=== PATIENT | male | born 1955 | race Caucasian/White ===

== ENCOUNTER → 2016-05-23 | Outpatient (CLI) | payer OTHER ==
--- NOTE | 2016-05-23 16:56 | MRI ---
EXAM DESCRIPTION: MRI left knee CLINICAL HISTORY: Chronic knee pain and popping COMPARISON: None Available. TECHNIQUE: MRI of the left knee is performed according to our usual protocol with multiplanar multi sequence imaging. FINDINGS: Moderate left knee joint effusion is present and the patient has synovial hypertrophy. Evaluation of the articular surfaces of the knee joint shows severe medial compartment arthritis with extensive grade 4 chondrosis. Very little remaining articular cartilage is present in the medial compartment. Subchondral eburnation and reactive edema is present. Marginal osteophytes are noted. Lesser but still very significant patellofemoral arthritis is present with extensive grade 3 chondrosis. Mixed mainly grade 2/3 changes are present in the lateral compartment. Cruciate and collateral ligaments are intact. There is an extensive degenerative tear of the medial meniscus which is macerated throughout. There is no displaced fragment. There is a small loose body within the posteromedial aspect of the joint related to the arthritic changes. IMPRESSION: 1. Severe arthritis with related effusion, synovitis, and loose body 2. Extensive degenerative tear of the medial meniscus Electronically signed by: Ashish Carrion MD 05/23/2016 4:55 PM CDT
--- NOTE | 2016-05-23 16:59 | MRI ---
EXAM DESCRIPTION: MRI right knee CLINICAL HISTORY: Chronic right knee pain and popping COMPARISON: None Available. TECHNIQUE: MRI of the right knee is performed according to our usual protocol with multiplanar multi sequence imaging. FINDINGS: There is a moderate right knee joint effusion. There is a multilocular extra-articular ganglion behind the medial aspect of the distal femoral metaphysis. This has a benign appearance but is fairly large overall measuring about 3.3 cm in craniocaudal dimension and a maximum of about 19 mm in AP diameter. Assessment of the articular surfaces of the knee joint shows severe medial compartment arthritis with extensive mixed grade 3/4 chondrosis. The changes are slightly less severe than the contralateral knee but are still very severe. There is also a lesser degree of patellofemoral chondrosis. A prominent vertical cartilage tear is present just lateral to the main articular ridge of the patella and is near full-thickness and there is diffuse grade 2 chondrosis in the patellofemoral compartment. Lateral compartment is relatively well preserved. Cruciate and collateral ligaments are intact. There is a complex tear of the mid body and posterior horn of the medial meniscus with oblique horizontal and horizontal tear components. The tear extends all the way to the posterior central attachment site and there is an intrameniscal cyst at the posteromedial corner. Lateral meniscus intact. IMPRESSION: 1. Complex medial meniscus tear 2. Severe medial compartment arthritis 3. Large extra-articular ganglion Electronically signed by: Ashish Carrion MD 05/23/2016 4:58 PM CDT
== END | disposition home or self-care (01) ==
LOC: MRI 06:45
PROVIDERS: ATTEND Family Medicine
DX: M25.461 Effusion, right knee (principal); S83.241A Other tear of medial meniscus, current injury, right knee, initial encounter

== ENCOUNTER → 2016-08-15 | Outpatient (CLI) | payer OTHER | END | disposition home or self-care (01) | LOC: LAB.O 12:28 | PROVIDERS: ATTEND Psychiatry & Neurology Neurology | DX: M45.3 Ankylosing spondylitis of cervicothoracic region (principal); M45.6 Ankylosing spondylitis lumbar region; M79.A9 Nontraumatic compartment syndrome of other sites; M35.1 Other overlap syndromes; M54.81 Occipital neuralgia; M33.90 Dermatopolymyositis, unspecified, organ involvement unspecified; M35.3 Polymyalgia rheumatica; M06.9 Rheumatoid arthritis, unspecified; M35.00 Sjogren syndrome, unspecified; M32.10 Systemic lupus erythematosus, organ or system involvement unspecified; M81.8 Other osteoporosis without current pathological fracture; F90.9 Attention-deficit hyperactivity disorder, unspecified type; G04.89 Other myelitis; G25.89 Other specified extrapyramidal and movement disorders; G61.81 Chronic inflammatory demyelinating polyneuritis; H46.9 Unspecified optic neuritis; I73.00 Raynaud's syndrome without gangrene; G50.0 Trigeminal neuralgia; I77.9 Disorder of arteries and arterioles, unspecified; H81.49 Vertigo of central origin, unspecified ear; E53.8 Deficiency of other specified B group vitamins; E55.9 Vitamin D deficiency, unspecified ==

== ENCOUNTER → 2016-11-21 | Outpatient (CLI) | payer OTHER ==
--- NOTE | 2016-11-22 03:19 | MRI ---
EXAM DATE: 11/21/2016 2:00 PM CDT. PROCEDURE: MR CERVICAL SPINE WITHOUT IV CONTRAST. INDICATION: IDIOPATHIC PROGRESSIVE NEUROPATHY. COMPARISON: None. TECHNIQUE: Multiplanar T1 and T2 MRI images of the cervical were acquired without administration of intravenous contrast. FINDINGS: Straightening of the normal cervical lordosis. The cervical vertebral bodies demonstrate normal height and alignment. Mild intervertebral disc space height loss seen throughout the cervical spine. Normal marrow signal. The cervical cord demonstrates normal signal and morphology. C2-C3: Central disc protrusion slightly indenting the ventral cord. No foraminal stenosis or significant spinal canal stenosis. C3-C4: Disc bulge with osteophytic spurring results in mild narrowing of the spinal canal. Uncovertebral spurring and facet arthropathy results in severe left and moderate right foraminal stenoses. C4-C5: No significant spinal canal stenosis. No significant foraminal stenosis. Mild bilateral facet arthropathy. C5-C6: Mild left eccentric disc bulge effacing the ventral thecal sac. Mild narrowing of the spinal canal. Uncovertebral spurring and facet arthropathy results in severe bilateral foraminal stenosis. C6-C7: Disc bulge with osteophytic spurring, eccentric to the left and ligamentous hypertrophy results in mild/moderate spinal canal stenosis. Uncovertebral spurring and facet arthropathy contributes to severe left foraminal stenosis and mild right foraminal narrowing. C7-T1: No significant disc bulge. No spinal canal or neural foraminal narrowing. The soft tissues of the neck are unremarkable. IMPRESSION: Moderate multilevel degenerative changes of the cervical spine with mild/moderate spinal canal stenosis at C6-C7. Small disc osteophyte complexes at C2-C3, C3-C4, and C6-C7 indent the ventral cord. Severe left foraminal stenosis C3-C4 and C6-C7, and severe bilateral foraminal stenosis C5-C6. Lesser degenerative changes in the remainder of the cervical spine. Electronically signed by: Prashant Fatima MD 11/22/2016 3:18 AM CDT
== END | disposition home or self-care (01) ==
LOC: MRI 17:03
PROVIDERS: ATTEND Psychiatry & Neurology Neurology
DX: G60.3 Idiopathic progressive neuropathy (principal); M50.123 Cervical disc disorder at C6-C7 level with radiculopathy; M51.16 Intervertebral disc disorders with radiculopathy, lumbar region

== ENCOUNTER → 2017-01-09 | Outpatient (CLI) | payer OTHER ==
--- NOTE | 2017-01-10 17:46 | MRI ---
Lumbar spine MR EXAM DESCRIPTION: Lumbar Spine w/o Contrast CLINICAL HISTORY: RADICULOPATHY, bilateral leg weakness COMPARISON: None Available. TECHNIQUE: Multiplanar images of the lumbar spine were submitted without the administration of contrast FINDINGS: Normal lumbar alignment with straightening of the normal lordosis. There is loss of signal in the lumbar disc interspaces consistent with disc desiccation. Marginal osteophytes are present throughout the lumbar spine. Marrow signal appears within normal limits without evidence of geographic marrow lesion or marrow edema. Conus appears unremarkable and ends at the level of T12-L1. The canal appears congenitally narrow. T12-L1: Unremarkable. L1-L2: Mild facet arthropathy. No focal HNP or central canal narrowing. L2-L3: Mild facet arthropathy without focal HNP or central canal or neural foraminal narrowing L3-L4: Generalized bulging of the disc greatest on the right with small disc osteophyte complexes laterally on both the right and the left. In conjunction with facet arthropathy this results in mild left neural foraminal narrowing, flattening of the anterior aspect of the thecal sac and moderate to severe right neural foraminal stenosis. L4-L5: Moderate disc bulging and moderate facet arthropathy. There is moderate neural foraminal stenosis. L5-S1: Generalized bulging of the disc and facet arthropathy. There is moderate bilateral neural foraminal stenosis. IMPRESSION: Multilevel degenerative change without evidence of central canal stenosis Moderate to severe right and mild left neural foraminal stenosis at L3-L4 Moderate neural foraminal stenosis bilaterally at L4-5 and L5-S1, slightly worse on the left Electronically signed by: Monique Quinn 01/10/2017 5:44 PM [facility]
--- NOTE | 2017-01-10 18:00 | MRI ---
EXAM DESCRIPTION: Thoracic Spine w/o Contrast CLINICAL HISTORY: RADICULOPATHY COMPARISON: None Available. TECHNIQUE: Multiplanar images of the thoracic spine were submitted without the administration of contrast FINDINGS: Normal thoracic kyphosis and alignment. Marrow signal appears unremarkable without evidence of marrow edema or geographic marrow lesion. Signal within the thoracic cord appears within normal limits. At the level of T9-T10, there is facet arthropathy on the left with a focal area of calcification along the anterior margin of the ligamentum flavum. Findings may reflect osteophyte, exuberant calcification of the ligamentum flavum or calcified facet cyst. This results in moderate narrowing of the left aspect of the thecal sac posteriorly displacing the margin of the thecal sac but no significant impingement on the cord. There is severe left neural foraminal narrowing. No additional evidence to suggest HNP or central canal stenosis in the thoracic spine. IMPRESSION: There is a ovoid focus of calcification along the left facet at T9-T10 which may reflect calcified facet cyst, exuberant ligamentum flavum calcification or spur. This results in posterolateral impingement on the thecal sac without indentation of the cord. The left aspect of the canal is moderately narrowed and there is severe left neural foraminal stenosis Electronically signed by: Monique Quinn 01/10/2017 5:59 PM [employer]
== END | disposition home or self-care (01) ==
LOC: MRI 12:54
PROVIDERS: ATTEND Psychiatry & Neurology Neurology
DX: M48.04 Spinal stenosis, thoracic region (principal); M51.16 Intervertebral disc disorders with radiculopathy, lumbar region

== ENCOUNTER → 2017-08-28 | Outpatient (CLI) | payer OTHER ==
--- NOTE | 2017-08-28 11:46 | MRI ---
EXAM DESCRIPTION: Lumbar Spine w/o Contrast CLINICAL HISTORY: 62 years Male, INTERVERTEBRAL DISC DISORDERS W RADICULOPATHY COMPARISON: MRI of the lumbar spine dated 01/09/2017. TECHNIQUE: Multiplanar multiecho imaging of the lumbar spine was performed without intravenous contrast administration. FINDINGS: The normal lordotic curvature of the lumbar spine is well preserved. The vertebral body heights are well-maintained with no acute compression deformity. Multilevel intervertebral disc space narrowing is noted. The conus medullaris terminates at T12-L1 intervertebral disc space. The visualized spinal cord demonstrates no signal abnormality. L1-L2: Bilateral facet arthropathy with no canal stenosis or neural foraminal narrowing. L2-L3: Bilateral facet arthropathy with no canal stenosis or neural foraminal narrowing. L3-L4: Bilateral facet arthropathy with resultant moderate to severe right lateral recess narrowing and impingement of the traversing right L4 nerve root. There is moderate right and mild left neural foraminal narrowing as well. L4-L5: Bilateral facet arthropathy with resultant moderate left lateral recess narrowing and impingement of the traversing left L5 nerve root. There is mild right and moderate left neural foraminal narrowing as well. L5-S1: Bilateral facet arthropathy with no significant canal stenosis. Mild right and moderate left neural foraminal narrowing is identified. The visualized prevertebral and paravertebral soft tissues appear unremarkable. IMPRESSION: Bilateral facet arthropathy throughout the lumbar spine with changes worse from L3-L4 through L5-S1 levels as detailed above. Electronically signed by: Princess Painting MD 08/28/2017 11:44 AM CDT
== END ==
LOC: MRI 09:50
PROVIDERS: ATTEND Psychiatry & Neurology Neurology
DX: M51.16 Intervertebral disc disorders with radiculopathy, lumbar region (principal); M54.16 Radiculopathy, lumbar region

== ENCOUNTER → 2019-07-30 | Outpatient (CLI) | payer OTHER | LOC: GMA MATASK 11:06 | PROVIDERS: ATTEND Family Medicine | DX: Z11.59 Encounter for screening for other viral diseases (principal) ==